=== PATIENT | female | born 1985 | race Caucasian/White ===

== ENCOUNTER 2019-09-20 01:59 | Emergency (ER) | payer SELFPAY ==
[~2019-09-20] VITALS: Ht 167.6 cm; Wt 54.2 kg
--- NOTE | 2019-09-20 02:20 | NUR ---
Patient came in for having multiple seizures tonight. All seizures were witnessed and described as "big." Patient has a history of seizures which she takes meds for however she has not been taking them lately due to insurance coverage and moving locations. Patient is nauseous.
[2019-09-20] MEDS ORDERED: LORazepam 2 MG/ML, 1ML ONE (02:24)
[2019-09-20] MEDS ORDERED: LORazepam 2 MG/ML, 1ML IM ONE (02:30)
[2019-09-20] MEDS ORDERED: SODIUM CHLORIDE FLUSH 10ML SYR IVF ONE (02:30)
--- NOTE | 2019-09-20 02:45 | NUR ---
RECORD RELEASED SIGNED FOR [facility] AND [facility]. RELEASED FAXED TO BOTH FACILITIES.
--- NOTE | 2019-09-20 02:52 | NUR ---
Seizure witnessed with MD in room. Medication administered per nov. Seizure lasted approx 1 minute.
[2019-09-20 03:03] LABS: BASOPHILS # (AUTO) 0.03 x10^3/uL (0-0.1); BASOPHILS % (AUTO) 0 % (0-1); EOSINOPHILS # (AUTO) 0.01 x10^3/uL (0-0.4); EOSINOPHILS % (AUTO) 0 % (1-7); LYMPHOCYTES # (AUTO) 0.76 x10^3/uL (1-3.4); LYMPHOCYTES % (AUTO) 5 % (22-44); MD NO; MEAN CORPUSCULAR HEMOGLOBIN 31.9 pg (27.0-34.8); MEAN CORPUSCULAR HGB CONC 33.5 g/dL (32.4-35.8); MEAN CORPUSCULAR VOLUME 95.2 fL (80-100); MEAN PLATELET VOLUME 8.2 fL (7.4-10.4); MONOCYTES # (AUTO) 0.28 x10^3/uL (0.2-0.8); MONOCYTES % (AUTO) 2 % (2-9); NEUTROPHILS # (AUTO) 15.29 x10^3/uL (1.8-6.8); NEUTROPHILS % (AUTO) 93 % (42-75); PLATELET COUNT 244 x10^3/uL (130-400); RED BLOOD COUNT 4.99 x10^6/uL (3.82-5.3); RED CELL DISTRIBUTION WIDTH 13.2 % (9.6-15.2)
[2019-09-20 03:15] LABS: ALANINE AMINOTRANSFERASE 18 U/L (12-78); ALBUMIN 4.3 g/dL (3.4-5.0); ANION GAP 7 mmol/L (5-15); CALCIUM 8.4 mg/dL (8.5-10.1); CHLORIDE 111 mmol/L (98-107); CREATININE 1.08 mg/dL (0.55-1.02)
[2019-09-20 03:17] LABS: ALKALINE PHOSPHATASE 66 U/L (45-117); BILIRUBIN,TOTAL 1.6 mg/dL (0.2-1.0); TOTAL PROTEIN 7.8 g/dL (6.4-8.2)
[2019-09-20 03:38] LABS: AMPHETAMINE SCREEN, URINE Negative (Negative); BARBITURATE SCREEN, URINE Negative (Negative); BENZODIAZEPINE SCREEN, URINE Negative (Negative); CANNABINOID SCREEN, URINE Positive (Negative); COCAINE SCREEN, URINE Negative (Negative); METHADONE SCREEN, URINE Negative (Negative); OPIATE SCREEN, URINE Negative (Negative)
[2019-09-20 05:09] LABS: MICROSCOPIC INDICATED
[2019-09-20 05:20] LABS: CULTURE INDICATED? NO
[2019-09-20 05:44] VITALS: BP 98/62
--- NOTE | 2019-09-20 05:51 | NUR ---
Patient given discharge instructions and they have confirmed that they understand the instructions. Patient ambulatory with steady gait.
== END 2019-09-20 05:52 | disposition home or self-care (01) ==
LOC: ED 03:20
DX: G40.319 Generalized idiopathic epilepsy and epileptic syndromes, intractable, without status epilepticus (principal); F17.200 Nicotine dependence, unspecified, uncomplicated; R11.10 Vomiting, unspecified; R10.9 Unspecified abdominal pain
CPT/HCPCS: 36415; 70450; 80053; 80307; 81001; 85025; 96372; 99284; J2060

== ENCOUNTER 2019-10-23 12:53 | Inpatient (IN) | payer OTHER ==
[~2019-10-23] VITALS: Ht 167.6 cm; Wt 51.6 kg
[2019-10-23] MEDS ORDERED: OXCA300T19 PO (13:16)
--- NOTE | 2019-10-23 13:16 | NUR ---
THIS IS A 34 YO F BIB FAMILY WHO REPORTS 7 SEIZURES SINCE 0300AM. FAMILY REPORTS RECENT DX OF FLU. PT IS AGITATED AND REFUSING TO ANSWER QUESTIONS FOR ASSESSMENT. PT YELLED OUT TO DECK HAND "STOP THAT HURTS". RESP EVEN AND UNLABORED. VS STABE. NADN. SEIZURE PRECATIONS IN PLACE. FAMILY AT BEDSIDE W/ CALL LIGHT IN REACH. STUDENT IN ROOM FOR EVAL.
[2019-10-23 13:23] LABS: BASOPHILS % (AUTO) 0 % (0-1); EOSINOPHILS % (AUTO) 0 % (1-7); LYMPHOCYTES # (AUTO) 0.33 x10^3/uL (1-3.4); LYMPHOCYTES % (AUTO) 4 % (22-44); MD NO; MEAN CORPUSCULAR HEMOGLOBIN 32.1 pg (27.0-34.8); MEAN CORPUSCULAR VOLUME 94.4 fL (80-100); MEAN PLATELET VOLUME 8.1 fL (7.4-10.4); MONOCYTES # (AUTO) 0.65 x10^3/uL (0.2-0.8); MONOCYTES % (AUTO) 9 % (2-9); NEUTROPHILS # (AUTO) 6.53 x10^3/uL (1.8-6.8); NEUTROPHILS % (AUTO) 87 % (42-75); PLATELET COUNT 154 x10^3/uL (130-400); RED BLOOD COUNT 4.51 x10^6/uL (3.82-5.3); RED CELL DISTRIBUTION WIDTH 13.3 % (9.6-15.2)
[2019-10-23 13:31] LABS: ANION GAP 11 mmol/L (5-15); CALCIUM 8.4 mg/dL (8.5-10.1); CHLORIDE 108 mmol/L (98-107); CREATININE 1.39 mg/dL (0.55-1.02)
--- NOTE | 2019-10-23 13:42 | NUR ---
PT SLEEPING ON GURNEY. HAS REMOVED ALL MONITORING. REFUSING TO COOPERATE W/ ASSESSMENT.
--- NOTE | 2019-10-23 14:36 | NUR ---
PT SLEEPING ON GURNEY. RESP EVEN AND UNLABORED. NADN. CALL LIGHT IN REACH. PT REFUSING TO ANSWER [facility] REGARDING ASSESSMENT. DR. LAWSON UPDATED.
--- NOTE | 2019-10-23 15:32 | NUR ---
TELEPHONE CONVERSATION W/ PTS LISTED NEXT OF [facility]. INFORMED OF MD DECISION TO DISCHARGE AND REQUESTING A RIDE. CIARA ASKED IF PT IS BEING DC W/ MEDS. UNABLE TO OBTAIN PT PERMISSION TO GIVE OUT INFORMATION. PT IS BEING DC W/ MEDS. MEDICATION ASSISTANCE INFORMATION STAPLED TO DC INSTRUCTIONS. PT FAMILY REQUESTING THAT PT IS HELD HERE BECAUSE SHE IS UNABLE TO WATCH HER AND WANTS HER TO SPEAK W/ A MANAGER SPEECH. RESOURCES GIVEN W/ DC INSTRUCTIONS. REQUESTED PT TO CHANGE INTO CLOTHES.
--- NOTE | 2019-10-23 16:23 | NUR ---
FAMILY CURRENTLY AT BEDSIDE WITH PT. ADDITIONAL ORDERS RECEIVED FROM MD FOR MEDS AND TESTING. PT CONTINUES TO BE UNCOOROPERATIVE WITH GOWN, MONITORING AND IV PLACEMENT. FAMILY CURRENTLY DEESCALATED AND UNDERSTANDS POC. WILL CONTINUE TO MONITOR.
[2019-10-23] MEDS ORDERED: SODIUM CHLORIDE FLUSH 10ML SYR IVF ONE ×2 (16:30→17:00)
[2019-10-23] MEDS ORDERED: LORazepam 2 MG/ML, 1ML IM ONE (16:30)
[2019-10-23] MEDS ORDERED: LORazepam 2 MG/ML, 1ML ONE (16:30)
--- NOTE | 2019-10-23 16:35 | NUR ---
PT MEDICATED PER MAR WITH IM SHOT. WILL CONTINUE TO MONITOR
--- NOTE | 2019-10-23 16:50 | NUR ---
UNABLE TO OBTAIN BP. PT COMBATITIVE W/ STAFF. RIPPING BP CUFF OFF.
[2019-10-23] MEDS ORDERED: ZIPRASIDONE 20 MG INJ IM ONE ×2 (17:45→18:00)
--- NOTE | 2019-10-23 17:55 | NUR ---
ORDERS FOR UA RECEIVED. PT NON COMPLIANT WITH GIVING URINE AT THIS TIME. SIGNIFICANT OTHER WILL NOT GIVE CONSENT AT THIS TIME FOR A STRAIGHT CATH UA. PT IS TRANSITIONING CURRENTLY, STRAIGHT CATH WOULD BE TRAUMATIZING POTENTIALLY TO PT. UPDATED
--- NOTE | 2019-10-23 18:02 | NUR ---
PT MEDICATED PER EMAR. FAMILY UPDATED ON POC FOR CT. PT SLEEPING ON GURNEY RESP EVEN AND UNLABORED.
--- NOTE | 2019-10-23 18:27 | NUR ---
UNABLE TO OBTAIN BP. PT STILL COMBATIVE AT THIS TIME.
--- NOTE | 2019-10-23 18:29 | NUR ---
FAMILY AT BEDSIDE. UPDATED ON POC FOR CT. PT CONTINUES TO BE UNCOOPERATIVE AFTER FRENCH COMBER.
--- NOTE | 2019-10-23 19:01 | NUR ---
ATTEMPTED TO CALL CT NO ANSWER. WILL TRY AGAIN.
--- NOTE | 2019-10-23 19:17 | NUR ---
PT TO CT.
--- NOTE | 2019-10-23 19:26 | NUR ---
PT UNABLE TO TRANSFER TO CT TABLE. WILL NOTIFY DR. LAWSON.
--- NOTE | 2019-10-23 20:18 | NUR ---
REPORT GIVEN TO PURNIMA RN, PT READY FOR TRANSPORT WHEN ROOM READY
--- NOTE | 2019-10-23 20:26 | NUR ---
REHAN AT BEDSIDE FOR ADMIT ASSESSMENT
[2019-10-23] MEDS ORDERED: hydrALAzine 20 MG/ML, 1ML IVPush PRN (21:00)
[2019-10-23] MEDS ORDERED: PROMETHAZINE 25 MG/ML, 1ML IM PRN (21:00)
[2019-10-23] MEDS ORDERED: POLYETHYLENE GLYCOL 17 GM PACKET PO PRN (21:00)
[2019-10-23] MEDS ORDERED: BISACODYL 10 MG SUPP PR PRN (21:00)
[2019-10-23] MEDS ORDERED: NICOTINE 14MG/24 HR PATCH.TD24 TD SCH (21:00)
[2019-10-23] MEDS ORDERED: OXYcodone IR 5MG TABLET PO PRN (21:00)
[2019-10-23] MEDS ORDERED: LORazepam 2 MG/ML, 1ML IVPush PRN (21:00)
[2019-10-23] MEDS ORDERED: ACETAMINOPHEN 325 MG TABLET PO PRN ×2 (21:00→22:30)
[2019-10-23] MEDS ORDERED: ONDANSETRON 2MG/ML, 2ML IVPush PRN (21:00)
[2019-10-23] MEDS ORDERED: DOCUSATE 100 MG CAPSULE PO PRN (21:00)
[2019-10-23] MEDS ORDERED: ONDANSETRON ODT 4 MG PO PRN (21:00)
[2019-10-23 21:17] VITALS: BP 123/74
[2019-10-23] MEDS: HEPARIN 5,000 UNITS/ML, 1ML SQ SCH (21:30)
[2019-10-23 21:56] LABS: FREE T4 (FREE THYROXINE) 1.28 ng/dL (0.76-1.46)
[2019-10-24 01:12] VITALS: BP 105/66
[2019-10-24] MEDS: SODIUM CHLORIDE 0.9% 1,000 ML IV SCH ×2 (02:09→09:13)
[2019-10-24 03:30] LABS: BASOPHILS # (AUTO) 0.02 x10^3/uL (0-0.1); BASOPHILS % (AUTO) 0 % (0-1); EOSINOPHILS # (AUTO) 0.01 x10^3/uL (0-0.4); EOSINOPHILS % (AUTO) 0 % (1-7); LYMPHOCYTES # (AUTO) 1.14 x10^3/uL (1-3.4); LYMPHOCYTES % (AUTO) 15 % (22-44); MD NO; MEAN CORPUSCULAR HEMOGLOBIN 32.3 pg (27.0-34.8); MEAN CORPUSCULAR HGB CONC 33.9 g/dL (32.4-35.8); MEAN CORPUSCULAR VOLUME 95.5 fL (80-100); MEAN PLATELET VOLUME 8.9 fL (7.4-10.4); MONOCYTES # (AUTO) 0.72 x10^3/uL (0.2-0.8); MONOCYTES % (AUTO) 10 % (2-9); NEUTROPHILS # (AUTO) 5.72 x10^3/uL (1.8-6.8); NEUTROPHILS % (AUTO) 75 % (42-75); PLATELET COUNT 144 x10^3/uL (130-400); RED BLOOD COUNT 4.59 x10^6/uL (3.82-5.3); RED CELL DISTRIBUTION WIDTH 13.4 % (9.6-15.2)
[2019-10-24 03:38] LABS: ALBUMIN 3.9 g/dL (3.4-5.0); ANION GAP 12 mmol/L (5-15); CALCIUM 8.4 mg/dL (8.5-10.1); CHLORIDE 109 mmol/L (98-107)
[2019-10-24 03:43] LABS: ALANINE AMINOTRANSFERASE 22 U/L (12-78); ALKALINE PHOSPHATASE 61 U/L (45-117); BILIRUBIN,TOTAL 1.4 mg/dL (0.2-1.0); CHOL/HDL RATIO 3.3; CHOLESTEROL, TOTAL 100 mg/dL (140-239); CREATININE 1.06 mg/dL (0.55-1.02); HDL CHOL % 30 % (28-40); HDL CHOLESTEROL (DIRECT) 30 mg/dL (40-60); LDL CHOLESTEROL,CALCULATED 52 mg/dL (54-169); LDL/HDL RATIO 1.7 (0.5-3.0); TOTAL PROTEIN 7.7 g/dL (6.4-8.2); TRIGLYCERIDES 91 mg/dL (50-200); VLDL CHOLESTEROL 18 mg/dL (0-25)
[2019-10-24] MEDS: HEPARIN 5,000 UNITS/ML, 1ML SQ SCH ×2 (05:06→13:30)
[2019-10-24 08:24] LABS: MICROSCOPIC AUTO
[2019-10-24 08:25] VITALS: BP 112/72
[2019-10-24 08:30] LABS: CULTURE INDICATED? NO
[2019-10-24 08:38] LABS: AMPHETAMINE SCREEN, URINE Negative (Negative); BARBITURATE SCREEN, URINE Negative (Negative); BENZODIAZEPINE SCREEN, URINE Negative (Negative); CANNABINOID SCREEN, URINE Positive (Negative); COCAINE SCREEN, URINE Negative (Negative); METHADONE SCREEN, URINE Negative (Negative); OPIATE SCREEN, URINE Negative (Negative)
[2019-10-24] MEDS ORDERED: OXCARBAZEPINE 300MG TABLET PO SCH (09:00)
[2019-10-24 11:38] LABS: AMPHETAMINE SCREEN, URINE Negative (Negative); BARBITURATE SCREEN, URINE Negative (Negative); BENZODIAZEPINE SCREEN, URINE Negative (Negative); CANNABINOID SCREEN, URINE Positive (Negative); COCAINE SCREEN, URINE Negative (Negative); METHADONE SCREEN, URINE Negative (Negative); OPIATE SCREEN, URINE Negative (Negative)
[2019-10-24] MEDS ORDERED: OXCA300T19 PO (13:38)
[2019-10-24] MEDS ORDERED: NICO-486 TD (13:38)
[2019-10-24 14:32] VITALS: BP 108/67
== END 2019-10-24 17:39 | disposition home or self-care (01) | DRG 100 ==
LOC: ED 16:24 → EDIP 19:04 → 4WST 21:03
PROVIDERS: ADMIT Internal Medicine; ATTEND Internal Medicine
DX: G40.909 Epilepsy, unspecified, not intractable, without status epilepticus (principal); N17.0 Acute kidney failure with tubular necrosis; E87.2 Acidosis; F12.90 Cannabis use, unspecified, uncomplicated; F17.210 Nicotine dependence, cigarettes, uncomplicated; F64.9 Gender identity disorder, unspecified; Z98.82 Breast implant status; Z88.8 Allergy status to other drugs, medicaments and biological substances
CPT/HCPCS: 36415; 71045; 80048; 80053; 80061; 80307; 81001; 82550; 83036; 83605; 83735; 84439; 84443; 85025; 87040; 93005; 96372; G0378; J1644; J3486; J2060; J7030

== ENCOUNTER 2019-12-06 10:29 | Emergency (ER) | payer OTHER ==
[~2019-12-06] VITALS: Ht 167.6 cm; Wt 110.0 kg
[~2019-12-06 10:29] MED LIST: NICO-486 TD; OXCA300T19 PO
[2019-12-06] MEDS ORDERED: OXCARBAZEPINE 150 MG TABLET PO STA (10:36)
[2019-12-06] MEDS ORDERED: ESTROGEN (10:40)
[2019-12-06] MEDS ORDERED: SPIRONOLACTONE (10:40)
[2019-12-06] MEDS ORDERED: LORazepam 2 MG/ML, 1ML ONE (10:47)
[2019-12-06] MEDS ORDERED: SODIUM CHLORIDE FLUSH 10ML SYR IVF ONE (11:00)
[2019-12-06] MEDS ORDERED: LORazepam 2 MG/ML, 1ML IVPush ONE (11:00)
--- NOTE | 2019-12-06 11:04 | NUR ---
PT MEDICATED TO NOV, WILL REQUEST PO MED FROM RX. PT LAYING IN BED EYES CLOSED, RESPIRATIONS EVEN AND UNLABORED, NO SIGNS OF DISTRESS.
[2019-12-06 11:10] LABS: BASOPHILS % (AUTO) 1 % (0-1); EOSINOPHILS # (AUTO) 0.14 x10^3/uL (0-0.4); EOSINOPHILS % (AUTO) 1 % (1-7); LYMPHOCYTES # (AUTO) 1.14 x10^3/uL (1-3.4); LYMPHOCYTES % (AUTO) 11 % (22-44); MD NO; MEAN CORPUSCULAR HEMOGLOBIN 31.8 pg (27.0-34.8); MEAN CORPUSCULAR HGB CONC 33.6 g/dL (32.4-35.8); MEAN CORPUSCULAR VOLUME 94.7 fL (80-100); MEAN PLATELET VOLUME 7.5 fL (7.4-10.4); MONOCYTES # (AUTO) 0.57 x10^3/uL (0.2-0.8); MONOCYTES % (AUTO) 6 % (2-9); NEUTROPHILS # (AUTO) 8.26 x10^3/uL (1.8-6.8); NEUTROPHILS % (AUTO) 81 % (42-75); PLATELET COUNT 285 x10^3/uL (130-400); RED BLOOD COUNT 4.89 x10^6/uL (3.82-5.3); RED CELL DISTRIBUTION WIDTH 13.4 % (9.6-15.2)
[2019-12-06 11:21] LABS: ALBUMIN 3.8 g/dL (3.4-5.0); ANION GAP 8 mmol/L (5-15); CALCIUM 8.3 mg/dL (8.5-10.1); CHLORIDE 110 mmol/L (98-107); CREATININE 1.15 mg/dL (0.55-1.02)
--- NOTE | 2019-12-06 12:17 | NUR ---
PT IN BED, RESPIRATIONS EVEN AND UNLABORED, NO SIGNS OF DISTRESS, EYES CLOSED, LIGHTS OFF TO PROMOTE REST.
[2019-12-06 12:41] VITALS: BP 106/65
== END 2019-12-06 12:43 | disposition home or self-care (01) ==
LOC: ED 11:48
DX: G40.309 Generalized idiopathic epilepsy and epileptic syndromes, not intractable, without status epilepticus (principal)
CPT/HCPCS: 36415; 80048; 82040; 85025; 96374; 99283; J2060